=== PATIENT | female | born 1970 ===

== ENCOUNTER 2020-05-01 04:33 | Emergency (ER) | payer MEDICAID ==
[~2020-05-01] VITALS: Ht 157.5 cm; Wt 63.5 kg
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
[2020-05-01 05:44] LABS: CARBON DIOXIDE 28 mmol/L (21-32); CHLORIDE 108 mmol/L (98-107); CREATININE 0.8 mg/dL (0.6-1.3); GLUCOSE 99 mg/dL (74-106); POTASSIUM 3.5 mmol/L (3.5-5.1); UREA NITROGEN, BLOOD 11 mg/dL (7-18)
[2020-05-01 05:45] LABS: BASOPHILS % (AUTO) 0.6 % (0.0-2.0); EOSINOPHILS # (AUTO) 0.1 K/uL (0.0-0.7); EOSINOPHILS % (AUTO) 0.9 % (0.0-7.0); HEMATOCRIT 37.7 % (31.2-41.9); HEMOGLOBIN 12.7 g/dL (10.9-14.3); LYMPHOCYTES # (AUTO) 2.4 K/uL (20.0-40.0); LYMPHOCYTES % (AUTO) 34.7 % (20.5-51.5); MEAN CORPUSCULAR HEMOGLOBIN 31.1 uug (24.7-32.8); MEAN CORPUSCULAR HGB CONC 34 g/dL (32.3-35.6); MEAN CORPUSCULAR VOLUME 92.5 fL (75.5-95.3); MONOCYTES # (AUTO) 0.2 K/uL (2.0-10.0); MONOCYTES % (AUTO) 3.5 % (0.0-11.0); NEUTROPHILS # (AUTO) 4.2 K/uL (1.8-8.9); NEUTROPHILS % (AUTO) 60.3 % (38.5-71.5); PLATELET COUNT (AUTO) 318 K/uL (179-408); RED BLOOD CELL COUNT(AUTO) 4.08 MIL/uL (3.63-4.92)
[2020-05-01 05:50] LABS: ALANINE AMINOTRANSFERASE 21 U/L (14-59); ALKALINE PHOSPHATASE 73 U/L (50-136); ASPARTATE AMINOTRANSFERASE 20 U/L (15-37); BILIRUBIN,DIRECT 0.2 mg/dL (0.0-0.2); BILIRUBIN,TOTAL 0.5 mg/dL (0.2-1.0); TOTAL PROTEIN, SERUM 7.7 g/dL (6.4-8.2)
[2020-05-01 05:52] LABS: ACETAMINOPHEN < 2.0 ug/mL (10-30)
[2020-05-01 05:53] LABS: ETHANOL 355 MG/DL (0-0)
[2020-05-01] MEDS ORDERED: IV NS 1000 ML 1,000 ML IV ONE (06:00)
--- NOTE | 2020-05-01 06:12 | NUR ---
Patient was able to tell me that the last thing she remembers is that she "was walking for maybe 4-5 hours and maybe passed out". She also mentioned that she "drank alcohol and smoked some weed" which falls in line with her 0.36 Blood Alcohol Level.
--- NOTE | 2020-05-01 07:22 | NUR ---
received patient in shift report
[2020-05-01] MEDS ORDERED: IV NORMAL SALINE 1000 ML BAG IV ONE (08:15)
--- NOTE | 2020-05-01 10:00 | NUR ---
Patient states she called family to pick her up
--- NOTE | 2020-05-01 12:00 | NUR ---
Awaiting family to roll picker patient, given meal tray at this time
[2020-05-01] MEDS ORDERED: ONDANSETRON 4 MG/2 ML VIAL ONE (13:56)
[2020-05-01] MEDS ORDERED: ONDANSETRON 4 MG/2 ML VIAL IV ONE (14:00)
--- NOTE | 2020-05-01 14:40 | NUR ---
Patient discharged to home in stable condition. Patient states she isnt homeless. patient states she lives in [place] and has called herself an uber. Written and verbal after care instructions given. Patient verbalizes understanding of instructions. Stressed follow up or return to ER for worsening s/s.
[2020-05-01 14:50] VITALS: BP 112/57
== END 2020-05-01 14:50 | disposition home or self-care (01) ==
LOC: EDBD 04:34 → ER 04:34
DX: T51.0X1A Toxic effect of ethanol, accidental (unintentional), initial encounter (principal); I95.89 Other hypotension; Y92.410 Unspecified street and highway as the place of occurrence of the external cause; F10.129 Alcohol abuse with intoxication, unspecified; Y90.8 Blood alcohol level of 240 mg/100 ml or more; Z82.49 Family history of ischemic heart disease and other diseases of the circulatory system; R94.31 Abnormal electrocardiogram [ECG] [EKG]; F12.90 Cannabis use, unspecified, uncomplicated; Z20.822 Contact with and (suspected) exposure to COVID-19
CPT/HCPCS: 36415; 70450; 71045; 80048; 80076; 80299; 80320; 82550; 82962; 83605 ×2; 84702; 85025; 87040 ×2; 87426; 93005; 96361; 96374; 99285; J2405; A4663; G0480; J7030